=== PATIENT | female | born 1990 | race Caucasian/White ===

== ENCOUNTER → 2016-04-23 | Outpatient (CLI) | payer BC | END | disposition home or self-care (01) | LOC: LAB.O 10:08 | PROVIDERS: ATTEND Obstetrics & Gynecology | DX: Z34.02 Encounter for supervision of normal first pregnancy, second trimester (principal) ==

== ENCOUNTER → 2016-12-09 | Outpatient (CLI) | payer BC ==
--- NOTE | 2016-12-09 17:33 | MRI ---
EXAM DATE: 12/09/2016 2:00 PM CDT. PROCEDURE: MR BRAIN WITHOUT THEN WITH IV CONTRAST. INDICATION: PITUITARY ANOMOLAY. COMPARISON: None. TECHNIQUE: Multiplanar multisequence images of the brain were acquired after the administration of intravenous contrast. FINDINGS: No restricted diffusion. No acute infarct or intracranial hemorrhage. No midline shift. T2 FLAIR images demonstrates no significant parenchymal signal abnormalities. Dedicated imaging through the sella demonstrates a T1 hyperintense, T2 hyperintense mass within the sella measuring 9 x 11 x 11 mm (Transverse x AP x CC). Layering debris or fluid is seen along the posterior aspect of this lesion. This lesion demonstrates no enhancement. The normal pituitary gland is displaced left laterally. Mass abuts the right cavernous sinus however does not cause invasion. There is mild mass effect upon the optic chiasm on the right. No hydrocephalus. Internal carotid and vertebrobasilar flow voids are identified. Unremarkable orbits, paranasal sinuses, mastoid air cells, and calvarium. 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 Follow-up imaging should include a fat-saturated sequence to exclude intralesional fat such as can be seen with a dermoid. A susceptibility weighted sequence should also be considered to exclude intralesional hemorrhage or calcification which can be seen with craniopharyngiomas. Comparison with prior CT of the head may be of use if available. Mild mass effect upon the right optic chiasm. Electronically signed by: Efren Neff MD 12/09/2016 5:32 PM CDT
== END | disposition home or self-care (01) ==
LOC: MRI 14:00
DX: E23.6 Other disorders of pituitary gland (principal)

== ENCOUNTER → 2018-06-05 | Outpatient (CLI) | payer OTHER ==
--- NOTE | 2018-06-06 06:23 | MRI ---
Study: MRI of the Brain. Pituitary Gland Protocol. Indication: PROLACTINOMA Technique: Multiplanar, multi sequence MRI of the brain obtained with and without intravenous contrast utilizing the pituitary gland protocol. Comparison: December 09, 2016. Findings: Previously noted ovoid hypoenhancing lesion within the right pituitary gland has significantly decreased in size. Previously it measured 12 mm transverse by 9 mm craniocaudal, whereas today it measures up to 8 mm transverse by 3 mm craniocaudal. It demonstrates a new cystlike appearance without appreciable enhancement. The degree of left lateral displacement of the remainder of the pituitary gland is improved. No involvement of the cavernous sinuses. Cavernous portions of the bilateral internal carotid arteries demonstrate normal flow voids. No MRI evidence of acute ischemia, acute hemorrhage, midline shift, or extra-axial fluid collection. Ventricles are normal in configuration without hydrocephalus. Paranasal sinuses are adequately aerated. Mastoid air cells are adequately aerated. Osseous structures and soft tissues demonstrate normal signal characteristics. Impression: Significant decrease in size of the previously noted lesion within the right lateral half of the pituitary gland. In addition, it demonstrates interval cystic change with no appreciable enhancement. Electronically signed by: Sidney Quinteros MD 06/06/2018 6:20 AM CDT
== END ==
LOC: MRI 10:00
PROVIDERS: ATTEND Family Medicine
DX: D35.2 Benign neoplasm of pituitary gland (principal)